=== PATIENT | female | born 1985 | race Caucasian/White ===

== ENCOUNTER 2018-06-22 17:07 | Emergency (ER) | payer SELFPAY ==
[2018-06-22 17:27] VITALS: BP 134/88
[2018-06-22] MEDS ORDERED: NORMAL SALINE 1000 ML 1,000 ML IV ONE (18:20)
[2018-06-22] MEDS ORDERED: MORPHINE SULFATE 10 MG/ML INJ IV ONE (18:21)
[2018-06-22] MEDS ORDERED: ONDANSETRON HCL INJ/PF 4 MG/2 ML SDV IV ONE (18:21)
--- NOTE | 2018-06-22 18:25 | ER Document Report ---
ED General - General Chief Complaint: Abdominal Pain Stated Complaint: STOMACH PAIN Time Seen by Provider: 06/22/18 17:58 Notes: Patient is a 32-year-old female that presents to the emergency department for chief complaint of abdominal pain and diarrhea. Patient states that her pain started last night, and got progressively worse throughout today. She denies having any nausea or vomiting, but admits to having nonbloody diarrhea. She rates the pain as a 10 out of 10 at this time describes as a sharp pain, and the left side of her abdomen, mainly the left lower quadrant into the left flank. She has also had some dysuria as well. She states she just came off of her period and does not believe she is . She denies noting any fevers, chills, night sweats, chest pain, shortness of breath or difficulty breathing. Past Medical History: Asthma Past Surgical History: Salpingectomy, tonsillectomy Social History: Admits to smoking cigarettes daily, and occasional alcohol use, denies illicit drug use. Family History: Reviewed and noncontributory for presenting illness Allergies: Reviewed, see documented allergy list. REVIEW OF SYSTEMS: Unless otherwise stated in this report the patient's positive and negative responses for review of systems for constitutional, eyes, ENT, cardiovascular, respiratory, gastrointestinal, neurological, genitourinary, musculoskeletal, and integumentary systems and related systems to the presenting problem are either as stated in the HPI or were not pertinent or were negative for the symptoms and/or complaints related to the presenting medical problem. PHYSICAL EXAMINATION: Vital signs reviewed, nursing noted reviewed. GENERAL: Well-appearing, well-nourished and . HEAD: Atraumatic, normocephalic. EYES: Eyes appear normal, extraocular movements intact, sclera anicteric, conjunctiva are normal. ENT: nares patent, oropharynx clear without exudates. Moist mucous membranes. NECK: Normal range of motion, supple without lymphadenopathy LUNGS: Breath sounds clear to auscultation bilaterally and equal. No wheezes rales or rhonchi. HEART: Regular rate and rhythm without murmurs ABDOMEN: Left flank and left lower quadrant abdominal tenderness with palpation , soft, normoactive bowel sounds. No rebound, guarding, or rigidity. No masses appreciated. EXTREMITIES: Nontender, good range of motion, no pitting or edema. NEUROLOGICAL: No focal neurological deficits. Moves all extremities spontaneously Motor and sensory grossly intact on exam. PSYCH: Normal mood, flat affect SKIN: Warm, Dry, normal turgor, no rashes or lesions noted on exposed skin TRAVEL OUTSIDE OF THE [place] IN LAST 30 DAYS: No - Related Data Allergies/Adverse Reactions: amoxicillin [Amoxicillin] Allergy (Verified 06/22/18 17:11) doxycycline [Doxycycline] Allergy (Verified 06/22/18 17:11) Penicillins Allergy (Verified 06/22/18 17:11) Past Medical History - Social History Smoking Status: Current Every Day Smoker Chew tobacco use (# tins/day): No Frequency of alcohol use: Occasional Drug Abuse: None Family History: Reviewed & Not Pertinent Patient has suicidal ideation: No Patient has homicidal ideation: No Pulmonary Medical History: Reports: Hx Asthma - uses rescue inhale forgot all inhalers, Hx Bronchitis, Hx Pneumonia Renal/ Medical History: Reports: Hx Ectopic . Denies: Hx Peritoneal Dialysis GI Medical History: Reports: Hx Gastroesophageal Reflux Disease, Hx Ulcer - peptic Past Surgical History: Reports: Hx Section, Hx Gynecologic Surgery - , tube removed, Hx Tonsillectomy - Immunizations Immunizations up to date: Yes Hx Diphtheria, Pertussis, Tetanus Vaccination: Yes Physical Exam - Vital signs Vitals: Temp Pulse Resp BP Pulse Ox 99.8 F 117 H 18 134/88 H 100 06/22/18 17:19 06/22/18 17:19 06/22/18 17:19 06/22/18 17:19 06/22/18 17:19 Course - Re-evaluation Re-evalutation: Patient seen and examined vital signs reviewed. Laboratory data and imaging were ordered as appropriate for the patient's presenting symptoms and complaint, with consideration of any critical or life threatening conditions that may be associated with their obtained history and exam as noted above. Patient refused IV placement, history of IV drug use in the past, denies current use, but states she has difficulty obtaining IV, refusing blood draws as well. UA obtained. While labs are pending, the patient had eloped from the hospital, without receiving treatment, or having any results discussed with the patient. *Note is created using voice recognition software and may contain spelling, syntax or grammatical errors. 06/22/18 20:52 06/22/18 23:17 - Vital Signs Vital signs: Temp Pulse Resp BP Pulse Ox 99.8 F 117 H 18 134/88 H 100 06/22/18 17:19 06/22/18 17:19 06/22/18 17:19 06/22/18 17:19 06/22/18 17:19 - Laboratory Laboratory results interpreted by me: 06/22/18 18:30 Urine Ketones TRACE H Urine Urobilinogen 2.0 H Ur Leukocyte Esterase MODERATE H Discharge - Discharge Disposition: ELOPED
[2018-06-22 19:56] LABS: APPEARANCE,URINE SLIGHTLY-CLOUDY; BILIRUBIN,URINE NEGATIVE (NEGATIVE); COLOR,URINE YELLOW; GLUCOSE, URINE NEGATIVE (NEGATIVE); KETONES,URINE TRACE mg/dL (NEGATIVE); LEUKOCYTE ESTERASE,URINE MODERATE (NEGATIVE); NITRITE,URINE NEGATIVE (NEGATIVE); PROTEIN,URINE NEGATIVE (NEGATIVE); URINE SPECIFIC GRAVITY 1.021
== END 2018-06-22 20:35 | disposition left against medical advice (07) ==
LOC: ER 17:07
DX: R10.32 Left lower quadrant pain (principal); R19.7 Diarrhea, unspecified; R30.0 Dysuria; F17.200 Nicotine dependence, unspecified, uncomplicated; J45.909 Unspecified asthma, uncomplicated; F17.210 Nicotine dependence, cigarettes, uncomplicated; Z90.79 Acquired absence of other genital organ(s); Z88.0 Allergy status to penicillin; Z88.1 Allergy status to other antibiotic agents; Z53.20 Procedure and treatment not carried out because of patient's decision for unspecified reasons
CPT/HCPCS: 81001; 81025; 99281

== ENCOUNTER 2018-06-23 11:15 | Inpatient (IN) | payer SELFPAY ==
[2018-06-23] MEDS ORDERED: NORMAL SALINE 1000 ML 1,000 ML IV ONE (11:33)
--- NOTE | 2018-06-23 11:33 | ER Document Report ---
ED Medical Screen (RME) - General Chief Complaint: Abdominal Pain Stated Complaint: ABDOMINAL PAIN Time Seen by Provider: 06/23/18 11:22 Mode of Arrival: Ambulatory Information source: Patient Notes: 32-year-old female with history of IV drug use presents with right upper quadrant abdominal pain. Was seen here yesterday, eloped. Only urinalysis was obtained. She states today's abdominal pain as different, sharper and now located in the right side. Patient reports that she "fell out" prior to arrival. I have greeted and performed a rapid initial assessment of this patient. A comprehensive ED assessment and evaluation of the patient, analysis of test results and completion of medical decision making process we will be contacted by additional ED providers. PHYSICAL EXAMINATION: GENERAL: well-nourished and in no acute distress. HEAD: Atraumatic, normocephalic. EYES: Pupils equal round extraocular movements intact, conjunctiva are normal. ENT: Nares patent NECK: Normal range of motion LUNGS: No respiratory distress Musculoskeletal: Normal range of motion NEUROLOGICAL: Normal speech, normal gait. PSYCH: Normal mood, normal affect. SKIN: Warm, Dry, normal turgor, no rashes or lesions noted. TRAVEL OUTSIDE OF THE [place] IN LAST 30 DAYS: No - HPI Onset: Other Onset/Duration: Gradual, Persistent, Worse Quality of pain: Sharp Severity: Moderate - Related Data Smoking: Cigarettes Frequency of alcohol use: Occasional Drug Abuse: Heroin - states has not used in two months Allergies/Adverse Reactions: amoxicillin [Amoxicillin] Allergy (Verified 06/23/18 11:15) doxycycline [Doxycycline] Allergy (Verified 06/23/18 11:15) Penicillins Allergy (Verified 06/23/18 11:15) Past Medical History Pulmonary Medical History: Reports: Hx Asthma - uses rescue inhale forgot all inhalers, Hx Bronchitis, Hx Pneumonia Renal/ Medical History: Reports: Hx Ectopic . Denies: Hx Peritoneal Dialysis GI Medical History: Reports: Hx Gastroesophageal Reflux Disease, Hx Ulcer - peptic Past Surgical History: Reports: Hx Section, Hx Gynecologic Surgery - , tube removed, Hx Tonsillectomy - Immunizations Immunizations up to date: Yes Hx Diphtheria, Pertussis, Tetanus Vaccination: Yes Physical Exam - Vital signs Vitals: Temp Pulse Resp BP Pulse Ox 99.4 F 111 H 20 128/77 H 100 06/23/18 11:20 06/23/18 11:20 06/23/18 11:20 06/23/18 11:20 06/23/18 11:20 Course - Vital Signs Vital signs: Temp Pulse Resp BP Pulse Ox 99.4 F 111 H 20 128/77 H 100 06/23/18 11:20 06/23/18 11:20 06/23/18 11:20 06/23/18 11:20 06/23/18 11:20
[2018-06-23] MEDS ORDERED: IBUPROFEN 600 MG TABLET PO ONE (12:23)
[2018-06-23] MEDS ORDERED: FENTANYL CITRATE INJ/PF 100 MCG/2 ML AMPUL IV ONE (12:30)
[2018-06-23] MEDS ORDERED: ONDANSETRON HCL INJ/PF 4 MG/2 ML SDV IV ONE ×2 (12:30→16:24)
--- NOTE | 2018-06-23 12:33 | ER Document Report ---
ED General - General Chief Complaint: Abdominal Pain Stated Complaint: ABDOMINAL PAIN Time Seen by Provider: 06/23/18 11:22 Mode of Arrival: Ambulatory TRAVEL OUTSIDE OF THE [place] IN LAST 30 DAYS: No - HPI Notes: Patient is a 32-year-old female, IV drug abuser, who presents to the ED complaining of mid to right upper abdominal pain that has been constant over the last day, but present intermittently over the last 3 days. Patient states that she has had a decrease in p.o. intake due to worsening pain and nausea. Patient states that she has had some diarrhea that has been nonbloody. She is urinating normally. She has not had any other vaginal discharge, odor, or bleeding. Patient states that she has been running intermittent fevers of the last couple days as well. Patient was evaluated yesterday, but eloped. Denies any headache, fever, URI, sore throat, chest pain, palpitations, syncope, cough , shortness of breath, wheeze, dyspnea, urinary retention, dysuria, hematuria, back pain, loss of control of bowel or bladder, numbness/tingling, saddle anesthesia, muscle paralysis/weakness, or rash. - Related Data Allergies/Adverse Reactions: amoxicillin [Amoxicillin] Allergy (Verified 06/23/18 11:15) doxycycline [Doxycycline] Allergy (Verified 06/23/18 11:15) Penicillins Allergy (Verified 06/23/18 11:15) Past Medical History - General Information source: Patient - Social History Smoking Status: Current Every Day Smoker Chew tobacco use (# tins/day): No Frequency of alcohol use: Occasional Drug Abuse: Heroin - states has not used in two months Family History: Reviewed & Not Pertinent Patient has suicidal ideation: No Patient has homicidal ideation: No Pulmonary Medical History: Reports: Hx Asthma - uses rescue inhale forgot all inhalers, Hx Bronchitis, Hx Pneumonia Renal/ Medical History: Reports: Hx Ectopic . Denies: Hx Peritoneal Dialysis GI Medical History: Reports: Hx Gastroesophageal Reflux Disease, Hx Ulcer - peptic Past Surgical History: Reports: Hx Section, Hx Gynecologic Surgery - , tube removed, Hx Tonsillectomy - Immunizations Immunizations up to date: Yes Hx Diphtheria, Pertussis, Tetanus Vaccination: Yes Review of Systems - Review of Systems -: Yes All other systems reviewed and negative Physical Exam - Vital signs Vitals: Temp Pulse Resp BP Pulse Ox 99.4 F 111 H 20 128/77 H 100 06/23/18 11:20 06/23/18 11:20 06/23/18 11:20 06/23/18 11:20 06/23/18 11:20 - Notes Notes: PHYSICAL EXAMINATION: GENERAL: crying, not wanting to move. Holds her abd mainly to the rt upper side. appears uncomfortable. HEAD: Atraumatic, normocephalic. EYES: Pupils equal round and reactive to light, extraocular movements intact, sclera anicteric, conjunctiva are normal. ENT: Nares patent and without discharge. oropharynx clear without exudates. No tonsilar hypertrophy or erythema. Moist mucous membranes. NECK: Normal range of motion, supple without lymphadenopathy LUNGS: Breath sounds clear to auscultation bilaterally and equal. No wheezes rales or rhonchi. HEART: Regular rate and rhythm without murmurs, rubs, gallops. ABDOMEN: firm, tender throughout even to light touch. pt is guarding. No masses appreciated. Normal bowel sounds present. + mild CVA tenderness bilaterally. Musculoskeletal: FROM to passive/active. Strength 5+/5. Extremities: No cyanosis, clubbing, or edema b/l. Peripheral pulses 2+. Capillary refill less than 3 seconds. NEUROLOGICAL: Cranial nerves grossly intact. Normal speech, normal gait. Normal sensory, motor exams PSYCH: Normal mood, normal affect. SKIN: Warm, Dry, normal turgor, no rashes or lesions noted. Course - Re-evaluation Re-evalutation: 06/23/18 12:32 Pt's abd is firm and very tender even to light touch in the setting of IV drug abuser. Pt is screaming, crying, and does not want me to touch her abd. I called Dr. Maldonado to come evaluate for a possible acute abd based on current presentation. Nurse's have been having difficulty obtaining IV access and were only able to receive a small amount of blood from her foot. 06/23/18 12:45 Dr. Maldonado eval'd the patient and believes that this is more voluntary and is not 'rigid' like a perforation at this time. Recommends CT scan to further evaluate. 06/23/18 16:[address] Maldonado. NG tube and admit to medical. Pt appears to have a UTI as well which we will start Rocephin for. She has had cephalo's in the past per patient. Vitals currently acceptable. Pain medication and nausea med ordered. Spoke with Dr. Nixon who accepted patient for admit. Pt in agreement. - Vital Signs Vital signs: Temp Pulse Resp BP Pulse Ox 98.7 F 104 H 20 141/94 H 99 06/23/18 16:00 06/23/18 16:00 06/23/18 11:20 06/23/18 16:00 06/23/18 16:00 - Laboratory Result Diagrams: 06/23/18 12:54 06/23/18 12:22 Laboratory results interpreted by me: 06/23/18 06/23/18 06/23/18 12:22 12:23 12:54 WBC 17.4 H Seg Neutrophils % 79.9 H Absolute Neutrophils 13.9 H Sodium 136.4 L ALT 58 H Urine Protein 30 H Urine Blood SMALL H Urine Urobilinogen 2.0 H Ur Leukocyte Esterase MODERATE H Discharge - Discharge Clinical Impression: Small bowel obstruction, Acute UTI (urinary tract infection) Leukocytosis Qualifiers: Leukocytosis type: unspecified Qualified Code(s): D72.829 - Elevated white blood cell count, unspecified Abdominal pain Qualifiers: Abdominal location: generalized Qualified Code(s): R10.84 - Generalized abdominal pain Condition: Stable Disposition: ADMITTED INPATIENT Admitting Provider: Hospitalist - Dr. Nixon Unit Admitted: Medical Floor
[2018-06-23 12:45] LABS: ALANINE AMINOTRANSFERASE 58 U/L (9-52); ALBUMIN 3.7 g/dL (3.5-5.0); ALKALINE PHOSPHATASE 81 U/L (38-126); ANION GAP 8 (5-19); ASPARTATE AMINO TRANSFERASE 30 U/L (14-36); BILIRUBIN,DIRECT 0.4 mg/dL (0.0-0.4); BILIRUBIN,TOTAL 0.9 mg/dL (0.2-1.3); BLOOD UREA NITROGEN 9 mg/dL (7-20); CALCIUM 9.2 mg/dL (8.4-10.2); CARBON DIOXIDE 26 mmol/L (22-30); CHLORIDE 102 mmol/L (98-107); GLUCOSE 99 mg/dL (75-110); LIPASE 80.5 U/L (23-300); POTASSIUM 3.9 mmol/L (3.6-5.0); SODIUM 136.4 mmol/L (137-145); TOTAL PROTEIN 7.2 g/dL (6.3-8.2)
[2018-06-23 13:09] LABS: ABSOLUTE EOSINOPHILS # (AUTO) 0.2 10^3/uL (0.0-0.6); ABSOLUTE LYMPHOCYTES (AUTO) 2.4 10^3/uL (0.5-4.7); ABSOLUTE MONOCYTES (AUTO) 0.9 10^3/uL (0.1-1.4); ABSOLUTE NEUT (AUTO) 13.9 10^3/uL (1.7-8.2); BASOPHILS % (AUTO) 0.3 % (0-2); EOSINOPHILS % (AUTO) 0.9 % (0-6); HEMATOCRIT 42.4 % (36.0-47.0); HEMOGLOBIN 14.4 g/dL (12.0-15.5); LYMPHOCYTES % (AUTO) 13.9 % (13-45); MEAN CORPUSCULAR HEMOGLOBIN 31.5 pg (27.0-33.4); MEAN CORPUSCULAR VOLUME 93 fl (80-97); PLATELET COUNT 245 10^3/uL (150-450); RED BLOOD COUNT 4.58 10^6/uL (3.72-5.28); RED CELL DISTRIBUTION WIDTH 13.5 % (11.5-14.0); SEGMENTED NEUTROPHILS % (AUTO) 79.9 % (42-78); TOTAL CELLS COUNTED % (AUTO) 100 %; WHITE BLOOD COUNT 17.4 10^3/uL (4.0-10.5)
[2018-06-23] MEDS ORDERED: MORPHINE SULFATE 10 MG/ML INJ IV ONE (14:39)
[2018-06-23 14:56] LABS: AMORPHOUS SEDIMENT,URINE TRACE /HPF; APPEARANCE,URINE CLOUDY; BILIRUBIN,URINE NEGATIVE (NEGATIVE); COLOR,URINE AMBER; GLUCOSE, URINE NEGATIVE (NEGATIVE); KETONES,URINE NEGATIVE (NEGATIVE); LEUKOCYTE ESTERASE,URINE MODERATE (NEGATIVE); NITRITE,URINE NEGATIVE (NEGATIVE); PROTEIN,URINE 30 mg/dL (NEGATIVE); URINE SPECIFIC GRAVITY 1.018
--- NOTE | 2018-06-23 16:10 | RADIOLOGY REPORT (SQ) ---
EXAM DESCRIPTION: CT ABD/PELVIS WITH IV ORAL COMPLETED DATE/TIME: 06/23/2018 3:48 pm REASON FOR STUDY: abdominal pain COMPARISON: None. TECHNIQUE: CT scan of the abdomen and pelvis performed using helical scanning technique with dynamic intravenous contrast injection. No oral contrast. Images reviewed with lung, soft tissue, and bone windows. Reconstructed coronal and sagittal MPR images reviewed. Delayed images for evaluation of the urinary system also acquired. All images stored on PACS. All CT scanners at this facility use dose modulation, iterative reconstruction, and/or weight based d osing when appropriate to reduce radiation dose to as low as reasonably achievable (ALARA). [facility]: Dose Right [facility]: CareDose [facility]: Dose Right [facility]: Teradose 4D [facility]: Lengow CONTRAST TYPE AND DOSE: contrast/concentration: Isovue 350.00 mg/ml; Total Contrast Delivered: 72.0 ml; Total Saline Delivered: 66.0 ml RENAL FUNCTION: BUN 9 creatinine 0.67. RADIATION DOSE: CT Rad equipment meets quality standard of care and radiation dose reduction techniq ues were employed. CTDIvol: 8.6 - 12.0 mGy. DLP: 1236 mGy-cm.. LIMITATIONS: None. FINDINGS: LOWER CHEST: No significant findings. No nodules or infiltrates. LIVER: Normal size. No masses. No dilated ducts. SPLEEN: Normal size. No focal lesions. PANCREAS: No masses. No significant calcifications. No adjacent inflammation or peripancreatic fluid collections. Pancreatic duct not dilated. GALLBLADDER: No identified stones by CT criteria. No inflammatory changes to suggest cholecystitis. ADRENAL GLANDS: No significant masses or asymmetry. RIGHT KIDNEY AND URETER: No solid masses. No significant calcifications. No hydronephrosis or hyd roureter. LEFT KIDNEY AND URETER: No solid masses. No significant calcifications. No hydronephrosis or hydr oureter. AORTA AND VESSELS: No aneurysm. No dissection. Renal arteries, SMA, celiac without stenosis. RETROPERITONEUM: No retroperitoneal adenopathy, hemorrhage or masses. BOWEL AND PERITONEAL CAVITY: Moderate gastric distention and moderate dilation throughout the small b owel. Colon not significantly dilated No masses or inflammatory changes. No free fluid or peritoneal masses. APPENDIX: Not visualized. PELVIS: No mass. No free fluid. Normal bladder. ABDOMINAL WALL: No masses. No hernias. BONES: No significant or acute findings. OTHER: No other significant finding. IMPRESSION: MODERATE GASTRIC DISTENTION AND MODERATE DILATION THROUGHOUT THE SMALL BOWEL. FINDINGS MAY REPRESENT DISTAL SMALL BOWEL OBSTRUCTION, ALTHOUGH THE ETIOLOGY IS NOT APPARENT. ALTERNATIVELY M AY BE DUE TO DIFFUSE ILEUS. NO OTHER SIGNIFICANT FINDINGS. TECHNICAL DOCUMENTATION: JOB ID: [id number] Quality ID # [id number]: Final reports with documentation of one or more dose reduction techniques (e.g., Au tomated exposure control, adjustment of the mA and/or kV according to patient size, use of iterative reconstruction technique) 2010 [employer]- All Rights Reserved Reading location - IP/workstation name: [email or web address]
--- NOTE | 2018-06-23 16:22 | EKG REPORT ---
SEVERITY:- NORMAL ECG - SINUS RHYTHM : Confirmed by: Miguel Manriquez MD 23-Jun-2018 16:21:36
[2018-06-23] MEDS ORDERED: HYDROMORPHONE HCL INJ/PF 2 MG/ML AMPULE IV ONE (16:24)
[2018-06-23] MEDS ORDERED: CEFTRIAXONE 1 GM/D5W RTU 1 GM/50 ML RTUPB IV ONE (16:24)
[2018-06-23] MEDS ORDERED: LIDOCAINE 1% INJ-PF (10 MG/ML) 30 ML SDV NEB ONE (17:00)
[2018-06-23] MEDS ORDERED: CEFTRIAXONE INJ 1000 MG VIAL ONE (17:36)
[2018-06-23] MEDS ORDERED: ACETAMINOPHEN 325 MG TABLET PO PRN (17:37)
[2018-06-23] MEDS ORDERED: ONDANSETRON HCL INJ/PF 4 MG/2 ML SDV IV PRN (17:37)
[2018-06-23] MEDS ORDERED: DEXTROSE 50%-WATER 25 GM/50 ML DISP.SYRIN IV PRN ×2 (17:37)
[2018-06-23] MEDS ORDERED: DEXTROSE 40% GEL 15 GM TUBE PO PRN ×2 (17:37)
[2018-06-23] MEDS ORDERED: GLUCAGON,HUMAN RECOMB 1 MG INJ SUBCUT PRN (17:37)
[2018-06-23] MEDS ORDERED: RINGERS SOLUTION,LACTATED 1,000 ML IV PRN (17:37)
[2018-06-23] MEDS ORDERED: ALBUTEROL SULFATE 0.083% NEB 2.5 MG/3 ML AMPUL NEB PRN (17:37)
[2018-06-23] MEDS ORDERED: LEVOFLOXACIN 750 MG/D5W RTU 750 MG/150 ML RTUPB IV SCH (18:00)
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
--- NOTE | 2018-06-23 18:26 | RADIOLOGY REPORT (SQ) ---
EXAM DESCRIPTION: KUB/ABDOMEN (SINGLE VIEW) COMPLETED DATE/TIME: 06/23/2018 6:02 pm REASON FOR STUDY: Ng tube placement confirmation COMPARISON: CT dated 06/23/2018. NUMBER OF VIEWS: One view. TECHNIQUE: Supine radiographic image of the upper abdomen acquired. LIMITATIONS: None. FINDINGS: BOWEL GAS PATTERN: Distended stomach and dilated small bowel. CALCIFICATIONS: No suspicious calcifications. SOFT TISSUES: No gross mass or suggestion of organomegaly. HARDWARE: Nasogastric tube with the tip in the stomach. BONES: No acute fracture. No worrisome bone lesions. OTHER: No other significant finding. IMPRESSION: NASOGASTRIC TUBE WITH THE TIP IN THE STOMACH. DISTENDED STOMACH AND DILATED SMALL BOWEL . TECHNICAL DOCUMENTATION: JOB ID: [id number] [employer]- All Rights Reserved Reading location - IP/workstation name: [email or web address]
[2018-06-23] MEDS: HYDROMORPHONE HCL INJ/PF 2 MG/ML AMPULE IV PRN ×3 (19:16→23:53)
[2018-06-23] MEDS: PROMETHAZINE HCL INJ 25 MG/1 ML VIAL IV PRN (22:04)
[2018-06-23] MEDS ORDERED: NICOTINE 21 MG/24 HR PATCH.TD24 TD ONE (22:10)
[2018-06-24] MEDS ORDERED: HYDROMORPHONE HCL 2 MG TABLET NG PRN (00:26)
[2018-06-24] MEDS ORDERED: ACETAMINOPHEN 325 MG TABLET PO PRN (00:30)
--- NOTE | 2018-06-24 01:21 | PDOC CONSULTATION ---
Consultation Consult Date: 06/23/18 Consult reason:: bowel obstruction vs ileus History of Present Illness Admission Date/PCP: 06/23/18 16:37 Patient complains of: abdominal pains History of Present Illness: YVAN MAHAN is a 32 year old female who is an IV drug abuser c/o diffuse abdominal pains since yesterda but intermittent for past 3 days. Denies fever/chills. I was asked by ED PROVINCE ARCHIVIST to evaluate patient's abdomen which he claims has tenderness with rigidity. Past Medical History Pulmonary Medical History: Reports: Asthma - uses rescue inhale forgot all inhalers, Bronchitis, Pneumonia GI Medical History: Reports: Gastroesophageal Reflux Disease, Other - Hepatitis C Infectious Medical History: Reports: Hepatitis C Past Surgical History Past Surgical History: Reports: Section, Tonsillectomy Social History Smoking Status: Current Every Day Smoker Cigarettes Packs Per Day: 1 Frequency of Alcohol Use: None Hx Recreational Drug Use: Yes Drugs: Cocaine Family History Family History: Reviewed & Not Pertinent Parental Family History Reviewed: No Children Family History Reviewed: No Sibling(s) Family History Reviewed.: No Medication/Allergy Home Medications: Ranitidine HCl [Zantac 300 mg Tablet] 300 mg PO DAILY 04/01/12 Albuterol Sulfate [Albuterol Sulfate Hfa] 8.5 gm IH ASDIR PRN 10/15/13 Sulfamethoxazole/Trimethoprim [Bactrim Ds Tablet] 1 each PO BID #10 tablet 08/07 Allergies/Adverse Reactions: amoxicillin [Amoxicillin] Allergy (Verified 06/23/18 11:15) doxycycline [Doxycycline] Allergy (Verified 06/23/18 11:15) Penicillins Allergy (Verified 06/23/18 11:15) Review of Systems Constitutional: PRESENT: as per HPI Eyes: PRESENT: other - no visual/hearing changes Cardiovascular: PRESENT: other - no chest pains/cough Gastrointestinal: PRESENT: abdominal pain, nausea Genitourinary: PRESENT: other - no dysuria Musculoskeletal: PRESENT: back pain Neurological: PRESENT: other - no seizures Psychiatric: PRESENT: anxiety, depression Hematologic/Lymphatic: PRESENT: other - no easy bruising Physical Exam Vital Signs: Temp Pulse Resp BP Pulse Ox 98.8 F 109 H 20 139/88 H 95 06/23/18 19:41 06/23/18 19:41 06/23/18 19:41 06/23/18 19:41 06/23/18 19:41 Intake & Output 06/22/18 06/23/18 06/24/18 06:59 06:59 06:59 Intake Total 550 Output Total 1000 Balance -450 General appearance: PRESENT: severe distress Head exam: PRESENT: atraumatic Eye exam: PRESENT: conjunctiva pink Mouth exam: PRESENT: moist Neck exam: PRESENT: full ROM Respiratory exam: PRESENT: clear to auscultation ravi Cardiovascular exam: PRESENT: RRR Pulses: PRESENT: normal radial pulses Vascular exam: PRESENT: normal capillary refill GI/Abdominal exam: PRESENT: firm, guarding, soft, tenderness - diffuse Rectal exam: PRESENT: deferred Extremities exam: PRESENT: full ROM Musculoskeletal exam: PRESENT: ambulatory Neurological exam: PRESENT: alert, oriented to person, oriented to place, oriented to time, oriented to situation Psychiatric exam: PRESENT: anxious Skin exam: PRESENT: normal color, warm Results Impressions: Abdomen/Pelvis CT 06/23/18 00:00 IMPRESSION: MODERATE GASTRIC DISTENTION AND MODERATE DILATION THROUGHOUT THE SMALL BOWEL. FINDINGS MAY REPRESENT DISTAL SMALL BOWEL OBSTRUCTION, ALTHOUGH THE ETIOLOGY IS NOT APPARENT. ALTERNATIVELY MAY BE DUE TO DIFFUSE ILEUS. NO OTHER SIGNIFICANT FINDINGS. KUB X-Ray 06/23/18 00:00 IMPRESSION: NASOGASTRIC TUBE WITH THE TIP IN THE STOMACH. DISTENDED STOMACH AND DILATED SMALL BOWEL. Assessment & Plan - Diagnosis (1) Ileus Is this a current diagnosis for this admission?: Yes (2) Abdominal pain Qualifiers: Abdominal location: left lower quadrant Qualified Code(s): R10.32 - Left lower quadrant pain Is this a current diagnosis for this admission?: Yes - Time Time Spent: 30 to 50 Minutes - Inpatient Certification Medical Necessity: Need For IV Fluids, Need for Pain Control, Need for IV Antibiotics, Risk of Complication if Not Cared For in Hospital - Plan Summary Plan Summary: Likely has ileus than Mechanical obstruction. Coukd be from UTI/ effect of IV drug use. Keep NGT and repeat KUB in am. Keep well hydrated Antibiotics for UTI Will follow
[2018-06-24 07:43] VITALS: BP 138/73
[2018-06-24] MEDS ORDERED: ENOXAPARIN SODIUM INJ 40 MG/0.4 ML DISP.SYRIN SUBCUT SCH (10:00)
[2018-06-24] MEDS ORDERED: NORMAL SALINE 10 ML SDV (AFTER EACH USE) IV PRN (11:06)
[2018-06-24] MEDS: HYDROMORPHONE HCL INJ/PF 2 MG/ML AMPULE IV PRN ×2 (11:15→14:59)
--- NOTE | 2018-06-24 11:46 | RADIOLOGY REPORT (SQ) ---
EXAM DESCRIPTION: PICC INSERTION; U/S GUIDE FOR VASCULAR ACCESS; FLUORO/CV PLACEMENT COMPLETED DATE/TIME: 06/24/2018 10:51 am REASON FOR STUDY: NO IV access, IV drug user; NO IV ACCESS COMPARISON: Two-view chest 09/20/2012 FLUOROSCOPY TIME: 20 seconds 1 ultrasound and 1 digital fluoroscopic images saved to PACS. TECHNIQUE: Fluoroscopic and ultrasound guided PICC placement. LIMITATIONS: None. PROCEDURE: After written consent and assessment were obtained, the patient was brought into the fluo roscopy room and placed supine on the table. Ultrasound evaluation of potential access sites were per formed. After successfully identifying a patent left basilic, the left arm was prepped and draped in a sterile fashion along with the ultrasound probe. The entry site was anesthetized with 1% lidocaine. A 21 gauge 7 cm needle was advanced through the skin and into the basilic vein under live ultrasound guidance. An ultrasound image was saved to PACS confirming access site. A .018 guide wire was then inserted through the needle and into the venous system. The needle was then removed and an 11 blade scalpel was used to make a 1cm skin incision. A 5 fr peel-away sheath was advanced over the wire and into the venous system. A measurement was then made using the existing wire and live fluoroscopic gu idance. The wire was then removed and trimmed. The PICC was advanced through the peel-away sheath and into the venous system. The peel-away sheath was removed and the catheter was adhered to the patient s arm with a stat lock. The catheter was then aspirated and flushed and a sterile bandage was placed over the access site. A fluoroscopic spot image was saved to PACS confirming the catheter tip within the superior vena cava. IMPRESSION: SUCCESSFUL PLACEMENT OF A 5 FR DUAL LUMEN 40 cm CM PICC IN THE LEFT BASILIC VEIN. COMMENT: Patient medication list reviewed: Yes- Quality ID# 130:Eligible professional attests to doc umenting in the medical record they obtained, updated, or reviewed the patient's current medications. . Quality ID 145: Final reports for procedures using fluoroscopy that document radiation exposure maria a dom, or exposure time and number of fluorographic images (if radiation exposure indices are not avail able) Quality ID #76: The patient was prepped and draped using maximum sterile barrier technique including cap, mask, sterile gown, sterile gloves, a large sterile sheet, hand hygiene, and 2% Chlorhexidine fo r cutaneous antisepsis. When ultrasound is used, sterile ultrasound techniques are followed requiring sterile gel and sterile probes. TECHNICAL DOCUMENTATION: JOB ID: [id number] [employer]- All Rights Reserved rev-03/01 Reading location - IP/workstation name: [email or web address]
[2018-06-24] MEDS ORDERED: LEVOFLOXACIN 750 MG/D5W RTU 750 MG/150 ML RTUPB IV SCH (12:00)
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
[2018-06-24] MEDS: PROMETHAZINE HCL INJ 25 MG/1 ML VIAL IV PRN (13:56)
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
[2018-06-24] MEDS ORDERED: NICOTINE 21 MG/24 HR PATCH.TD24 TD SCH (22:00)
[2018-06-24] MEDS ORDERED: NORMAL SALINE 10 ML SDV (SCHEDULED) IV SCH (22:00)
== END 2018-06-24 15:50 | disposition left against medical advice (07) | DRG 690 ==
LOC: ER 11:15 → EH 16:37 → EEVIPCON 16:37 → 3S 18:38
PROVIDERS: ADMIT Internal Medicine; ATTEND Internal Medicine
PROC: 02HV33Z Insertion of Infusion Device into Superior Vena Cava, Percutaneous Approach (ICD-10-PCS; principal; 2018-06-24)
PROC: B518ZZA Fluoroscopy of Superior Vena Cava, Guidance (ICD-10-PCS; 2018-06-24)
PROC: B548ZZA Ultrasonography of Superior Vena Cava, Guidance (ICD-10-PCS; 2018-06-24)
DX: N12 Tubulo-interstitial nephritis, not specified as acute or chronic (principal); F11.20 Opioid dependence, uncomplicated; K56.7 Ileus, unspecified; K92.2 Gastrointestinal hemorrhage, unspecified; T76.11XA Adult physical abuse, suspected, initial encounter; J45.909 Unspecified asthma, uncomplicated; K21.9 Gastro-esophageal reflux disease without esophagitis; B19.20 Unspecified viral hepatitis C without hepatic coma; F17.210 Nicotine dependence, cigarettes, uncomplicated
CPT/HCPCS: 36415; 36569; 74018; 74177; 76937; 77001; 80053; 81001; 81025; 82962; 83605; 83690; 85025; 87040; 87086; 93005; 93010; J0696; J1170; J1642; J1956; J2270; J2405; J2550; J3010; J3490; J7030; J7120

== ENCOUNTER 2018-06-25 15:05 | Emergency (ER) | payer SELFPAY ==
[2018-06-25 15:14] VITALS: BP 140/94
[2018-06-25] MEDS ORDERED: NORMAL SALINE 1000 ML 1,000 ML IV ONE (15:40)
[2018-06-25] MEDS ORDERED: ONDANSETRON HCL INJ/PF 4 MG/2 ML SDV IV ONE (15:41)
[2018-06-25] MEDS ORDERED: KETOROLAC TROMETHAMINE INJ/PF 30 MG/1 ML SDV IV ONE (15:41)
--- NOTE | 2018-06-25 15:44 | ER Document Report ---
ED Medical Screen (RME) - General Chief Complaint: Abdominal Pain Stated Complaint: ABDOMINAL PAIN Time Seen by Provider: 06/25/18 15:34 TRAVEL OUTSIDE OF THE [place] IN LAST 30 DAYS: No - HPI Notes: 06/25/18 15:42 Patient is a 32-year-old female that presents to the emergency department for chief complaint of abdominal pain. Patient was admitted to the hospital for small bowel obstruction and left yesterday AMA. She states her abdominal pain is getting worse. ROS: GENERAL: Denies fever of chills CV: Denies chest pain PHYSICAL EXAMINATION: GENERAL: Well-appearing, well-nourished and in no acute distress. HEAD: Atraumatic, normocephalic. EYES: Pupils equal round extraocular movements intact, conjunctiva are normal. ENT: Nares patent NECK: Normal range of motion LUNGS: No respiratory distress Musculoskeletal: Normal range of motion NEUROLOGICAL: Normal speech, normal gait. PSYCH: Normal mood, normal affect. MDM: Patient seen and examined for rapid initial assessment. Vital signs reviewed. A comprehensive ED assessment and evaluation of the patient, analysis of test results and completion of the medical decision making process will be conducted by additional ED providers. - Related Data Allergies/Adverse Reactions: amoxicillin [Amoxicillin] Allergy (Verified 06/25/18 15:06) doxycycline [Doxycycline] Allergy (Verified 06/25/18 15:06) Penicillins Allergy (Verified 06/25/18 15:06) Past Medical History Pulmonary Medical History: Reports: Hx Asthma - uses rescue inhale forgot all inhalers, Hx Bronchitis, Hx Pneumonia Renal/ Medical History: Reports: Hx Ectopic . Denies: Hx Peritoneal Dialysis GI Medical History: Reports: Hx Gastroesophageal Reflux Disease, Hx Ulcer - peptic Past Surgical History: Reports: Hx Section, Hx Gynecologic Surgery - , tube removed, Hx Tonsillectomy - Immunizations Immunizations up to date: Yes Hx Diphtheria, Pertussis, Tetanus Vaccination: Yes Physical Exam - Vital signs Vitals: Temp Pulse Resp BP Pulse Ox 98.3 F 111 H 20 140/94 H 100 06/25/18 15:11 06/25/18 15:11 06/25/18 15:11 06/25/18 15:11 06/25/18 15:11 Course - Vital Signs Vital signs: Temp Pulse Resp BP Pulse Ox 98.3 F 111 H 20 140/94 H 100 06/25/18 15:11 06/25/18 15:11 06/25/18 15:11 06/25/18 15:11 06/25/18 15:11
== END 2018-06-25 16:47 | disposition left against medical advice (07) ==
LOC: ER 15:05
DX: R10.9 Unspecified abdominal pain (principal); Z53.20 Procedure and treatment not carried out because of patient's decision for unspecified reasons; J45.909 Unspecified asthma, uncomplicated; Z88.0 Allergy status to penicillin; Z88.1 Allergy status to other antibiotic agents
CPT/HCPCS: 99281

== ENCOUNTER 2018-06-25 20:51 | Emergency (ER) | payer SELFPAY ==
[2018-06-25] MEDS ORDERED: ONDANSETRON 4 MG TAB.RAPDIS PO ONE (22:17)
[2018-06-25 22:23] VITALS: BP 147/101
[2018-06-25] MEDS ORDERED: KETOROLAC TROMETHAMINE INJ/PF 30 MG/1 ML SDV IV ONE (22:26)
--- NOTE | 2018-06-25 22:27 | ER Document Report ---
ED General - General Chief Complaint: Abdominal Pain Stated Complaint: SEVERE ABDOMINAL PAIN Time Seen by Provider: 06/25/18 22:03 Notes: Patient is a 32-year-old female presents with complaint of abdominal pain. She was seen here a few days ago and admitted to the hospital. At that time she was diagnosed with possible small bowel obstruction. She was evaluated by the surgeon and she was found to have an ileus instead. She does have history of IV drug abuse however she tells me she does not use IV drugs in 2 months. Review of the patient's recent admission notes and also her recent urine noted says that she is a IV drug abuser suggesting that may be this is current however the patient says this is not true. She denies any pain or burning with urination. She denies any abnormal vaginal discharge or bleeding. When I asked where the pain as she points to her epigastric region. She says that since leaving the hospital she has been able to eat and drink without difficulty and has not had any follow-up further vomiting and says she feels that she is well-hydrated. She did return to the ER after leaving hospital AMA but also eloped that time as well. She said she came back because her mother told her she should come back she still having pain. TRAVEL OUTSIDE OF THE [place] IN LAST 30 DAYS: No - Related Data Allergies/Adverse Reactions: amoxicillin [Amoxicillin] Allergy (Verified 06/25/18 20:52) doxycycline [Doxycycline] Allergy (Verified 06/25/18 20:52) Penicillins Allergy (Verified 06/25/18 20:52) Past Medical History - Social History Smoking Status: Current Every Day Smoker Chew tobacco use (# tins/day): No Frequency of alcohol use: None Drug Abuse: Other - former IV drug abuse Family History: Reviewed & Not Pertinent Patient has suicidal ideation: No Patient has homicidal ideation: No Pulmonary Medical History: Reports: Hx Asthma - uses rescue inhale forgot all inhalers, Hx Bronchitis, Hx Pneumonia Renal/ Medical History: Reports: Hx Ectopic . Denies: Hx Peritoneal Dialysis GI Medical History: Reports: Hx Gastroesophageal Reflux Disease, Hx Ulcer - peptic Past Surgical History: Reports: Hx Section, Hx Gynecologic Surgery - , tube removed, Hx Tonsillectomy, Hx Tubal Ligation - Immunizations Immunizations up to date: Yes Hx Diphtheria, Pertussis, Tetanus Vaccination: Yes Review of Systems - Review of Systems Notes: My Normal Review Basic REVIEW OF SYSTEMS: CONSTITUTIONAL : Denies fever, chills, or sweats. Recently diagnosed with pyonephritis. EENT: Denies eye, ear, throat, or mouth pain or symptoms. Denies nasal or sinus congestion. CARDIOVASCULAR: Denies chest pain. RESPIRATORY: Denies cough, cold, or chest congestion. Denies shortness of breath, difficulty breathing, or wheezing. GASTROINTESTINAL: Abdominal pain. No vomiting. GENITOURINARY: Denies difficulty urinating, painful urination, burning, frequency, or blood in urine. MUSCULOSKELETAL: Denies neck or back pain or joint pain or swelling. SKIN: Denies rash or skin lesions. NEUROLOGICAL: Denies altered mental status or loss of consciousness. ALL OTHER SYSTEMS REVIEWED AND NEGATIVE. Physical Exam - Vital signs Vitals: Temp Pulse Resp BP Pulse Ox 98.8 F 103 H 22 H 145/104 H 100 06/25/18 20:55 06/25/18 20:55 06/25/18 20:55 06/25/18 20:55 06/25/18 20:55 - Notes Notes: General Appearance: Well nourished, alert, cooperative, no acute distress. First into the room the patient is sleeping comfortable. I wake her up and introduced myself. She then starts grabbing her abdomen and says she is having pain in her abdomen. Vitals: reviewed, See vital signs table. Head: no swelling or tenderness to the head Eyes: PERRL, EOMI, Conjuctiva clear Mouth: No decreasd moisture Throat: No tonsillar inflammation, No airway obstruction, No lymphadenopathy Neck: Supple, no neck tenderness, No thyromegaly Lungs: No wheezing, No rales, No rhonci, No accessory muscle use, good air exchange bilaterally. Heart: Normal rate, Regular rythm, No murmur, no rub Abdomen: Normal BS, soft, No rigidity, patient initially yells at me when I want to palpate her abdomen. She tells me that she does not want me to palpate her abdomen. I informed her it is hard for me to better determine what exactly is going on without actually evaluating her abdomen. She continues to yell and scream at me and tells me that she will not let me palpate her abdomen. I step back for 15 seconds and give her a chance to calm down and slowly explain to her the importance of evaluating her abdomen to help better determine what is going on. Patient then allows me to palpate her abdomen. Before I touch her abdomen she started screaming and saying it hurts even though my hand has not yet touched her abdomen. Eventually I am able to push on her abdomen. Her abdomen is soft and not rigid. She does not have peritoneal signs but screams immediately no matter where I am about to touch her abdomen. This seems somewhat voluntary in that she started screaming before I even touch her abdomen and her abdomen is actually very soft on exam. Extremities: good pulses in all extremities, no swelling or tenderness in the extremities, no edema. It is difficult to determine if the patient has any track patricia as patient has sleeves down to her elbows. When I go to push back her sleeve she immediately pulls her arm away. From her forearms down to her hands I do not see any redness or swelling or signs of infection. Skin: warm, dry, appropriate color, no rash Neuro: speech clear, oriented x 3, normal affect, responds appropriately to questions. Course - Re-evaluation Re-evalutation: 06/25/18 23:45 I informed the patient that we will be do further testing to try to evaluate exactly what is causing her pain. I did review her previous records and saw that her previous urinalysis showed large amount of epithelial cells making me suspect that it is possible that her previous urinalysis was contaminated and may not actually indicate a true urinary tract infection. I therefore wanted a straight cath urine to help better determine if her urine is truly infected so I can determine whether not this is actually the cause of her abdominal pain. I informed patient this is very important so that we can determine whether not she actually truly has urinary tract infection so we can rule in or rule out that as a potential cause of her pain. Also informed patient will be obtaining blood work. The nurse went in to obtain both the blood samples and the urine and the patient asked for the PICC line team. The nurse appropriately informed the patient that we do not have a PICC line team at night and there is no one here that can place a PICC line. The nurse said when she went to try to poke the patient for blood the patient immediately pulled her arm away and start screaming at the nurse and would not let her touch her and said that she would just leave if we do not have the PICC line team. The nurse came informed me of this and therefore I immediately went in the room to try to console and speak with the patient and address her concerns. The patient immediately started yelling at me and told me that she needs a PICC line team. I once again informed her that we do not have the PICC line team at night and therefore cannot get a PICC line. I informed her that our nurses here are actually very good and that Elaine is 1 of our very best nurses obtaining an IV and I suggested that she at least let her look to see if we can obtain IV access. The patient start yelling at me and told me that that was not acceptable. She said that she would not accept anybody to attempt an IV on her except for a PICC line team. I informed her that I cannot do an appropriate workup without actually obtaining blood work. The patient also yelled at me and said she did not want a straight cath urine and that the other urinalysis should be appropriate. I informed her again my concerns that the previous urines could potentially been contaminated and that we need to truly see if she has urinary tract infection or not so we can see if this was truly a potential cause of her abdominal pain or if there is something else going on. Patient again continued to yell at me and informed me that she wanted to be medically released. I informed her that she is not being held against her will and that she can leave at any time however I strongly encouraged her to stay so that I can do workup to find out the cause of her abdominal pain to rule out any potential life- threatening causes. At this time I think is less likely that she has any potential life-threatening cause and that her abdomen is soft and nonrigid and her vital signs are non-concerning except for just slight tachycardia. Also the patient herself informed me that she has been eating and drinking without any difficulty has not had any further vomiting has been doing well and only came because her mother told her to came. Also of concern is the patient start yelling at me and telling me that she cannot even stick herself to give herself IV drugs. She says that she has a hard time finding IV on herself and that is why she wants PICC line team. She says that every time she tries to inject herself she has a hard time finding a vein. Again I informed patient that we would still like to try to obtain blood work and try to work her up and treat her and find out why she is having the pain. Patient again refused this and I informed patient I would come back and talk to her one more time and give her a chance to calm down. After I left the room I was typing up potential discharge instructions in case the patient decided to leave after my next attempt at conversation with her. As I was doing this the nurse came and informed me that she went back in the room and the patient yelled and cursed at the nurse and left and did not want to wait for me to return. Patient showed no signs of inebriation. She did not act confused in any way. Patient did not give me any reason to thing she does not have capacity to make her own decision and did not show any signs of confusion that would allow me to hold her against her will to force a workup upon her. Patient was allowed to leave of her own free will. Dictation of this chart was performed using voice recognition software; therefore, there may be some unintended grammatical errors. 06/26/18 05:56 - Vital Signs Vital signs: Temp Pulse Resp BP Pulse Ox 98.8 F 103 H 18 147/101 H 98 06/25/18 20:55 06/25/18 20:55 06/25/18 22:00 06/25/18 22:00 06/25/18 22:00 Discharge - Discharge Clinical Impression: Abdominal pain Qualifiers: Abdominal location: generalized Qualified Code(s): R10.84 - Generalized abdominal pain Disposition: AGAINST MEDICAL ADVICE Additional Instructions: As discussed with you I cannot tell what is causing your abdominal pain without doing testing. Part of this testing is drawing your blood. You could potentially have something life threatening causing your pain, but there is no way for me to tell this without doing testing. There is no way to determine whether or not you will have a bad outcome within the next 24 hours and this is why we prefer you to stay and allow us to work you up. We respect your decision to refuse testing and treatment. Even though you are leaving we are not upset or mad. We just want what is best for you and therefore we encourage you to come back anytime if you change your mind and want to allow us to take care of you.
== END 2018-06-25 23:06 | disposition left against medical advice (07) ==
LOC: ER 20:51 → EEVIPCON 20:51 → ER 23:06
DX: R10.84 Generalized abdominal pain (principal); F17.200 Nicotine dependence, unspecified, uncomplicated; Z88.0 Allergy status to penicillin; Z88.1 Allergy status to other antibiotic agents; R00.0 Tachycardia, unspecified
CPT/HCPCS: 99284

== ENCOUNTER 2018-06-27 12:20 | Emergency (ER) | payer SELFPAY ==
[2018-06-27] MEDS ORDERED: KETOROLAC TROMETHAMINE INJ/PF 30 MG/1 ML SDV IV ONE (12:37)
[2018-06-27] MEDS ORDERED: METOCLOPRAMIDE HCL INJ/PF 10 MG/2 ML SDV IV ONE (12:37)
--- NOTE | 2018-06-27 12:37 | ER Document Report ---
ED GI/ - General Chief Complaint: Abdominal Injury Stated Complaint: ABDOMINAL PAIN Time Seen by Provider: 06/27/18 12:24 Mode of Arrival: Ambulatory TRAVEL OUTSIDE OF THE [place] IN LAST 30 DAYS: No - HPI Patient complains to provider of: Abdominal pain - 32-year-old female presents for evaluation of abdominal pain which she has been having well over a week, she notes that she was hospitalized for concern of a possible bowel obstruction then subsequently left the hospital because she needed to take care of some things, she re-presented thereafter and after a brief disagreement between people left without being evaluated. She presented today because she is having persistent pain though she did have a bowel movement today and has not had any episodes of emesis. She denies any other symptoms at this time including but not limited to diarrhea constipation dysuria nausea. - Related Data Allergies/Adverse Reactions: amoxicillin [Amoxicillin] Allergy (Verified 06/27/18 12:55) doxycycline [Doxycycline] Allergy (Verified 06/27/18 12:55) Penicillins Allergy (Verified 06/27/18 12:55) Past Medical History - General Information source: Patient, Emergency Med Personnel - Social History Smoking Status: Current Every Day Smoker Family History: Reviewed & Not Pertinent Pulmonary Medical History: Reports: Hx Asthma - uses rescue inhale forgot all inhalers, Hx Bronchitis, Hx Pneumonia Renal/ Medical History: Reports: Hx Ectopic . Denies: Hx Peritoneal Dialysis GI Medical History: Reports: Hx Gastroesophageal Reflux Disease, Hx Ulcer - peptic Past Surgical History: Reports: Hx Section, Hx Gynecologic Surgery - , tube removed, Hx Tonsillectomy, Hx Tubal Ligation - Immunizations Immunizations up to date: Yes Hx Diphtheria, Pertussis, Tetanus Vaccination: Yes Review of Systems - Review of Systems -: Yes All other systems reviewed and negative Physical Exam - Vital signs Vitals: Temp Pulse Resp BP Pulse Ox 97.9 F 94 14 135/98 H 100 06/27/18 12:25 06/27/18 12:25 06/27/18 12:25 06/27/18 12:25 06/27/18 12:25 - General General appearance: Appears well In distress: Mild - HEENT Head: Normocephalic Eyes: Normal Conjunctiva: Normal Cornea: Normal Pupils: PERRL - Respiratory Respiratory status: No respiratory distress Chest status: Nontender Breath sounds: Normal Chest palpation: Normal - Cardiovascular Rhythm: Regular Heart sounds: Normal auscultation Murmur: No Friction rub: No Avis's crunch: No - Abdominal Inspection: Normal Distension: No distension Tenderness: Other - Profound tenderness superficially along the skin in the right upper quadrant, no obvious organomegaly, no tenderness in left upper quadrant, diffuse tenderness in the lower abdomen - Back Back: Normal - Extremities General upper extremity: Normal inspection, Nontender, Normal ROM, Normal strength General lower extremity: Normal inspection, Nontender, Normal ROM, Normal strength - Neurological Neuro grossly intact: Yes Cognition: Normal Orientation: AAOx4 [place] Coma Scale Eye Opening: Spontaneous [place] Coma Scale Verbal: Oriented [place] Coma Scale Motor: Obeys Commands [place] Coma Scale Total: 15 Speech: Normal - Psychological Associated symptoms: Normal affect Course - Re-evaluation Re-evalutation: 06/27/18 13:23 18-year-old female presents for evaluation of persistent abdominal pain. She left the hospital twice after being evaluated this week for this persistent pain in the right upper quadrant. On examination the patient is excruciatingly tender superficially, without any pressure she nearly jumped off the bed. States concerned that it may represent her kidney however is not apparent what might be the underlying cause of kidney pain given that her previous urinalyses were essentially nondiagnostic. We will obtain a CMP lipase CBC urinalysis and urine test. We will administer Toradol and metoclopramide for patient's pain and nausea. Do not believe this represents a bowel obstruction or an ileus as this patient has had recurrent bowel movements over the last several days as well as the ability to move gas per rectum and no episodes of vomiting. Do not believe this represents cholecystitis or cholelithiasis as I performed an ultrasound at the bedside her common bile duct is within normal limits, her gallbladder is normal in dimension and the gallbladder wall itself is normal without any evidence of edema there is no evidence of cholelithiasis at this time. The right side kidney is normal, the parenchyma is unremarkable there is no obvious hydronephrosis on bedside ultrasound. CBC is improved from previous, her leukocytosis has resolved. CMP as well as renal function relatively unremarkable lipase is normal. Plan for this patient undergo discharge with return precautions and encouraged follow-up. Encouraged an aggressive bowel regimen moving forward. 06/27/18 13:37 - Vital Signs Vital signs: Temp Pulse Resp BP Pulse Ox 97.9 F 94 14 135/98 H 100 06/27/18 12:25 06/27/18 12:25 06/27/18 12:25 06/27/18 12:25 06/27/18 12:25 - Laboratory Result Diagrams: 06/27/18 12:43 06/27/18 12:43 Laboratory results interpreted by me: 06/27/18 12:43 AST 45 H ALT 66 H Total Protein 8.6 H Procedures - Ultrasound/Bedside Ultrasound/Bedside Notes: 06/27/18 13:38 Normal gallbladder, no appreciable gallbladder wall thickening, no echogenicity , normal common bile duct. Normal-appearing right sided kidney, no appreciable hydronephrosis, normal- appearing renal parenchyma Discharge - Discharge Clinical Impression: Abdominal pain Qualifiers: Abdominal location: unspecified location Qualified Code(s): R10.9 - Unspecified abdominal pain Condition: Good Disposition: HOME, SELF-CARE Instructions: Abdominal Pain ([facility]), Antinausea Medication ([facility]), Bulk Laxatives Additional Instructions: You were seen today in the emergency department for your abdominal pain, you had an evaluation including an ultrasound of your gallbladder and kidney as well as blood tests and urine tests, you are not at this time, your liver function is relatively normal, your kidney function is good and your electrolytes are normal. It is unclear what is causing your abdominal pain at this time however it does not appear to be an immediate life threat. I recommend utilizing an aggressive bowel regimen over the next week to try and make sure that you are having 2 large bowel movements every day. You should return for fevers or chills worsening nausea and vomiting. You should otherwise call a doctor to schedule an appointment this week for the persistent pain you are having. Use the cream prescribed to you for the pain on your abdomen as necessary. Prescriptions: Metoclopramide HCl [Reglan] 5 mg PO BID PRN #10 tablet PRN Reason: Polyethylene Glycol 3350 [Miralax Powder 17 gm/Packet] 1 packet PO BID #1 pkg Forms: Smoking Cessation Education
[2018-06-27] MEDS ORDERED: NORMAL SALINE 1000 ML 1,000 ML IV ONE (12:38)
[2018-06-27 13:03] LABS: ABSOLUTE BASOPHILS # (AUTO) 0.1 10^3/uL (0.0-0.2); ABSOLUTE EOSINOPHILS # (AUTO) 0.3 10^3/uL (0.0-0.6); ABSOLUTE LYMPHOCYTES (AUTO) 2.1 10^3/uL (0.5-4.7); ABSOLUTE MONOCYTES (AUTO) 0.6 10^3/uL (0.1-1.4); ABSOLUTE NEUT (AUTO) 4.8 10^3/uL (1.7-8.2); BASOPHILS % (AUTO) 0.8 % (0-2); EOSINOPHILS % (AUTO) 3.8 % (0-6); HEMATOCRIT 43.8 % (36.0-47.0); HEMOGLOBIN 15.2 g/dL (12.0-15.5); LYMPHOCYTES % (AUTO) 26.3 % (13-45); MEAN CORPUSCULAR HEMOGLOBIN 31.8 pg (27.0-33.4); MEAN CORPUSCULAR HGB CONC 34.7 g/dL (32.0-36.0); MEAN CORPUSCULAR VOLUME 92 fl (80-97); MONOCYTES % (AUTO) 7.4 % (3-13); PLATELET COUNT 352 10^3/uL (150-450); RED BLOOD COUNT 4.78 10^6/uL (3.72-5.28); RED CELL DISTRIBUTION WIDTH 13.3 % (11.5-14.0); SEGMENTED NEUTROPHILS % (AUTO) 61.7 % (42-78); TOTAL CELLS COUNTED % (AUTO) 100 %; WHITE BLOOD COUNT 7.8 10^3/uL (4.0-10.5)
[2018-06-27 13:10] LABS: APPEARANCE,URINE CLOUDY; BILIRUBIN,URINE NEGATIVE (NEGATIVE); COLOR,URINE YELLOW; GLUCOSE, URINE NEGATIVE (NEGATIVE); KETONES,URINE NEGATIVE (NEGATIVE); LEUKOCYTE ESTERASE,URINE NEGATIVE (NEGATIVE); NITRITE,URINE NEGATIVE (NEGATIVE); PROTEIN,URINE NEGATIVE (NEGATIVE); UROBILINOGEN,URINE NEGATIVE mg/dL (<2.0)
[2018-06-27 13:20] LABS: ALANINE AMINOTRANSFERASE 66 U/L (9-52); ALBUMIN 4.2 g/dL (3.5-5.0); ALKALINE PHOSPHATASE 87 U/L (38-126); ANION GAP 11 (5-19); ASPARTATE AMINO TRANSFERASE 45 U/L (14-36); BILIRUBIN,DIRECT 0.3 mg/dL (0.0-0.4); BILIRUBIN,TOTAL 0.3 mg/dL (0.2-1.3); BLOOD UREA NITROGEN 9 mg/dL (7-20); CALCIUM 9.5 mg/dL (8.4-10.2); CARBON DIOXIDE 28 mmol/L (22-30); CHLORIDE 101 mmol/L (98-107); GLUCOSE 87 mg/dL (75-110); LIPASE 90.9 U/L (23-300); POTASSIUM 4.2 mmol/L (3.6-5.0); TOTAL PROTEIN 8.6 g/dL (6.3-8.2)
[2018-06-27] MEDS ORDERED: LIDOCAINE 5% (700 MG) TRANSDERMAL ADH..PATCH TP ONE (13:37)
[2018-06-27 13:47] VITALS: BP 123/80
== END 2018-06-27 13:47 | disposition home or self-care (01) ==
LOC: ER 12:20
DX: R10.9 Unspecified abdominal pain (principal); F17.200 Nicotine dependence, unspecified, uncomplicated; K21.9 Gastro-esophageal reflux disease without esophagitis; Z88.0 Allergy status to penicillin; Z88.1 Allergy status to other antibiotic agents; Z88.3 Allergy status to other anti-infective agents
CPT/HCPCS: 99284; 96361; 96374; 96375; 36415; 83690; 85025; 81025; 80053; 81001; J1885; J2765

== ENCOUNTER 2018-08-04 14:59 | Outpatient (CLI) | payer SELFPAY | END 2018-08-04 15:01 | disposition left against medical advice (07) | LOC: LC 14:59 | PROVIDERS: ATTEND Obstetrics & Gynecology | DX: Z53.9 Procedure and treatment not carried out, unspecified reason (principal) ==